=== PATIENT | female | born 1990 | race Caucasian/White ===

== ENCOUNTER 2017-08-07 16:27 | Emergency (ER) | payer OTHER ==
[~2017-08-07] VITALS: Ht 157.5 cm; Wt 62.0 kg
[~2017-08-07 16:27] MED LIST: HYDR-3516 PO; PRENTAB44 PO; ROBA500T PO; ZOLO50TA PO
[2017-08-07 17:51] VITALS: BP 152/72; PULSE 95; RESP 18; TEMP 98.4; O2SAT 97
== END 2017-08-07 20:12 | disposition left against medical advice (07) ==
LOC: PHED 16:27
DX: Z53.21 Procedure and treatment not carried out due to patient leaving prior to being seen by health care provider (principal)
CPT/HCPCS: 99281